=== PATIENT | female | born 1945 | race Caucasian/White ===

== ENCOUNTER 2018-11-10 14:31 | Emergency (ER) | payer MEDICARE, BC ==
[2018-11-10] MEDS ORDERED: Bacitracin Oint 1 GM U/D Packet TOP ONE (15:16)
--- NOTE | 2018-11-10 15:19 | EDM.PDOC ---
ED HPI GENERAL MEDICAL PROBLEM - General Chief Complaint: Syncope Stated Complaint: fell while shopping Time Seen by Provider: 11/10/18 15:10 Source of Information: Reports: Patient, Family, RN Notes Reviewed History Limitations: Reports: No Limitations - History of Present Illness INITIAL COMMENTS - FREE TEXT/NARRATIVE: 73-year-old female presents emergency department today via EMS services, she was in [place] earlier today lost her footing and fell on her right knee there was no loss of consciousness no head injury following out of bed she walked into one of the local stores suddenly became very lightheaded came outside sat down was with family family states she passed out for a few moments was not shaking awoke by the time EMS services arrived started to come around when the family was point water down the back or neck Right Knee Pain Score (Numeric/FACES): 2 - Related Data Allergies Allergy/AdvReac Type Severity Reaction Status Date / Time Penicillins Allergy Rash Verified 11/10/18 15:04 Past Medical History Cardiovascular History: Reports: High Cholesterol, Hypertension Endocrine/Metabolic History: Reports: Diabetes, Type II Social & Family History - Tobacco Use Smoking Status *Q: Never Smoker - Recreational Drug Use Recreational Drug Use: No ED ROS GENERAL - Review of Systems Review Of Systems: See Below Constitutional: Reports: No Symptoms HEENT: Reports: No Symptoms Respiratory: Reports: No Symptoms Cardiovascular: Reports: Syncope GI/Abdominal: Reports: No Symptoms : Reports: No Symptoms ED EXAM, GENERAL - Physical Exam Exam: See Below Exam Limited By: No Limitations General Appearance: Alert, WD/WN, No Apparent Distress Respiratory/Chest: No Respiratory Distress, Lungs Clear, Normal Breath Sounds, No Accessory Muscle Use, Chest Non-Tender Cardiovascular: Regular Rate, Rhythm, No Murmur GI/Abdominal: Soft, Non-Tender Course - Vital Signs Last Recorded V/S: Last Vital Signs Temp 96.0 F 11/10/18 14:59 Pulse 104 H 11/10/18 14:59 Resp 16 11/10/18 14:59 BP 153/75 H 11/10/18 14:59 Pulse Ox 96 11/10/18 14:59 - Orders/Labs/Meds Orders: Active Orders 24 hr Category Date Time Status CULTURE URINE [RM] Urgent Lab 11/10/18 16:29 Ordered Labs: Laboratory Tests 07/10/19 07/10/19 07/10/19 Range/Units 15:16 15:16 15:50 WBC 9.7 (4.5-11.0) K/uL RBC 4.05 (3.30-5.50) M/uL Hgb 12.2 (12.0-15.0) g/dL Hct 37.2 (36.0-48.0) % MCV 92 (80-98) fL MCH 30 (27-31) pg MCHC 33 (32-36) % Plt Count 324 (150-400) K/uL Neut % (Auto) 74 H (36-66) % Lymph % (Auto) 15 L (24-44) % [place] % (Auto) 10 H (2-6) % Eos % (Auto) 1 L (2-4) % Baso % (Auto) 0 (0-1) % Sodium 141 (140-148) mmol/L Potassium 3.8 (3.6-5.2) mmol/L Chloride 103 (100-108) mmol/L Carbon Dioxide 28 (21-32) mmol/L Anion Gap 10.5 (5.0-14.0) mmol/L BUN 21 H (7-18) mg/dL Creatinine 0.8 (0.6-1.0) mg/dL Est Cr Clr Drug Dosing 45.66 mL/min Estimated GFR (MDRD) > 60 (>60) Glucose 136 H (74-106) mg/dL Calcium 9.4 (8.5-10.1) mg/dL Total Bilirubin 0.4 (0.2-1.0) mg/dL AST 28 (15-37) U/L ALT 31 (12-78) U/L Alkaline Phosphatase 85 (46-116) U/L Total Protein 7.1 (6.4-8.2) g/dL Albumin 3.6 (3.4-5.0) g/dL Globulin 3.5 (2.3-3.5) g/dL Albumin/Globulin Ratio 1.0 L (1.2-2.2) Urine Color Yellow Urine Appearance Clear Urine pH 5.0 (4.5-8.0) Ur Specific [place] 1.020 (1.008-1.030) Urine Protein Negative (NEGATIVE) mg/dL Urine Glucose (UA) Normal (NEGATIVE) mg/dL Urine Ketones 15 H (NEGATIVE) mg/dL Urine Occult Blood Small (NEGATIVE) Urine Nitrite Negative (NEGATIVE) Urine Bilirubin Negative (NEGATIVE) Urine Urobilinogen Normal (NORMAL) mg/dL Ur Leukocyte Esterase Moderate (NEGATIVE) Urine RBC 5-10 H (0-5) Urine WBC 10-20 H (0-5) Ur Epithelial Cells Few Amorphous Sediment Not seen Urine Bacteria Moderate Urine Mucus Not seen Meds: Medications Discontinued Medications Generic Name Dose Route Start Last Admin Trade Name Freq PRN Reason Stop Dose Admin Bacitracin 1 dose 11/10/18 15:16 11/10/18 15:44 Bacitracin Oint 1 Gm TOP 11/10/18 15:17 1 dose ONETIME ONE Administration Departure - Departure Time of Disposition: 16:33 Disposition: Home, Self-Care 01 Condition: Fair Clinical Impression: Syncope Qualifiers: Syncope type: unspecified Qualified Code(s): R55 - Syncope and collapse Referrals: PCP,None [Primary Care Provider] - Forms: ED Department Discharge Additional Instructions: Continue pushing fluids, we will contact your the results of your urine culture if it is consistent with urinary tract infection recommend starting antibiotics follow-up primary care 3-5 days if not better, call return to the emergency department worsening of symptoms - My Orders Last 24 Hours: My Active Orders 11/10/18 16:29 CULTURE URINE [RM] Urgent - Assessment/Plan Last 24 Hours: My Active Orders 11/10/18 16:29 CULTURE URINE [RM] Urgent Plan: Assessment Acuity = acute Site and laterality = syncopal event Etiology = unclear etiology] Manifestations = none Location of injury = Home Lab values = C, CMP unremarkable EKG from EMS crew shows normal sinus rhythm, urinalysis does have 5-10 RBCs consistent with hematuria and 10-20 WBCs consistent pyuria cultures pending Plan I did discussed options with her including treatment for urinary tract infection she declined at this time therefore prescription was written for Bactrim DS one tab by mouth twice a day 3 days follow-up primary care in 3-5 days if no improvement we will contact her when the culture results become available if it is positive she can start antibiotics This note was dictated using [employer] voice recognition software please call with any questions on syntax or grammar.
== END 2018-11-10 16:56 | disposition home or self-care (01) ==
LOC: JP.ED 14:31
DX: R55 Syncope and collapse (principal); E78.00 Pure hypercholesterolemia, unspecified; I10 Essential (primary) hypertension; E11.9 Type 2 diabetes mellitus without complications; Z88.0 Allergy status to penicillin
CPT/HCPCS: 36415; 80053; 81001; 85025; 87086; 99283; 99284